=== PATIENT | female | born 1975 | race Caucasian/White ===

== ENCOUNTER 2021-03-07 11:52 | Emergency (ER) | payer MEDICAID, SELFPAY ==
[2021-03-07] VITALS (16 sets, daily range): BP systolic 109–128; BP diastolic 72–84; PULSE 68–86; RESP 16; TEMP 36.6; O2SAT 97–100
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
[2021-03-07 12:39] LABS: Abs Immature Grans 0.11 10^3/uL (0.0-0.06); Absolute Basophil Count 0.05 10^3/uL (0.0-0.2); Absolute Eosinophil Count 0.04 10^3/uL (0.0-0.7); Absolute Lymphocyte Count 1.66 10^3/uL (1.2-3.4); Absolute Monocyte Count 0.68 10^3/uL (0.1-0.8); Absolute Neutrophil Count 15.35 10^3/uL (1.2-6.7); Basophils % 0.3; Eosinophils % 0.2; HCT 45.6 % (36.0-46.0); HGB 15.2 g/dL (11.2-15.7); Immature Grans % 0.6; Lymphocytes % 9.3; MCHC 33.3 % (32.0-36.0); MPV 9.9 fL (8.0-11.0); Monocytes % 3.8; Neutrophils % 85.8; Nucleated RBC 0 %; Platelet Count 348 10^3/uL (130-400); RBC 5.24 10^6/uL (3.93-5.22); RDW 12.5 % (11.7-14.6); RDW-SD 39.7 fL; WBC 17.89 10^3/uL (4.4-10.8)
[2021-03-07 12:52] LABS: ALT 29 U/L (14-59); AST 36 U/L (15-37); Albumin 4.3 g/dL (3.4-5.0); Alkaline Phosphatase 67 U/L (46-116); Anion Gap 8.8 mmol/L (3-11); BUN 16 mg/dL (7-18); Bilirubin, Total 0.5 mg/dL (0.2-1.0); CO2 26.2 mmol/L (21.0-32.0); CREATININE 0.9 mg/dL (0.55-1.02); Calcium 9.8 mg/dL (8.5-10.1); Chloride 105 mmol/L (98-107); Glucose 104 mg/dL (74-106); Lipase 110 U/L (73-393); Potassium 4.1 mmol/L (3.5-5.1); Sodium 140 mmol/L (136-145); Total Protein 7.5 g/dL (6.4-8.2)
--- NOTE | 2021-03-07 12:52 | NUR.NOTE ---
a FAST exam was done by ER MD on arrivalNursing Note:
[2021-03-07] MEDS: ACETAMINOPHEN 1,000 MG/100 ML BTL 400 MG IVPB (13:22)
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
[2021-03-07] MEDS: Normal Saline 500 ML IV (15:00)
[2021-03-07] MEDS: Normal Saline 1,000 ML 150 ML IV (15:01)
--- NOTE | 2021-03-07 15:48 | NUR.NOTE ---
pt anticipates transfer to [facility] via ambulance . her family is aware Nursing Note:
[2021-03-07 16:02] LABS: Bilirubin Negative (Negative); Blood Negative (Negative); Clarity Sl Cloudy (Clear); Glucose Negative (Negative); Ketones 40 mg/dL (Negative); Leukocyte Esterase Negative (Negative); Nitrite Negative (Negative); Specific Gravity >= 1.030 (1.005-1.025); Urobilinogen 0.2 EU/dL (Up TO 0.2)
[2021-03-07 16:20] LABS: Bacteria Many HPF (Negative); C & S Indicated? No/Sq. Contamination; Casts 20-50 Hyaline LPF (Negative); Crystals Negative HPF (Negative); Epithelial Cells Many HPF (Negative); Mucus Negative (Negative); RBC 0-2 HPF (0-2); WBC >50 HPF (0-5)
--- NOTE | 2021-03-07 19:17 | NUR.NOTE ---
Nursing Note: Received call requesting ct reading in regards to patient received by [facility] printed and faxed CT readings to Emergency dept fax number .
== END 2021-03-07 16:09 | disposition short-term general hospital (02) ==
PROVIDERS: Emergency Provider Student in an Organized Health Care Education/Training Program; PCP Family Medicine
DX: S22.088A Other fracture of T11-T12 vertebra, initial encounter for closed fracture (principal); M25.531 Pain in right wrist; M79.641 Pain in right hand; V19.9XXA Pedal cyclist (driver) (passenger) injured in unspecified traffic accident, initial encounter; M54.89 Other dorsalgia
CPT/HCPCS: 36415; 71250; 80053; 81025; 83690; 96361; 96374; 99285; 70450; 72125; 72128; 72131; 73110; 73130; 74176; 81003; 81015; 85025; J0131

== ENCOUNTER 2021-04-29 02:26 | Outpatient (CLI) | payer MEDICAID, SELFPAY ==
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
--- NOTE | 2021-04-29 21:01 | DI.VRAD_ITS ---
PROCEDURE INFORMATION: Exam: MR Right Upper Extremity Joint Without Contrast; Wrist Exam date and time: 04/29/2021 8:55 AM Age: 46 years old Clinical indication: Other: Pain TECHNIQUE: Imaging protocol: MR of the Right upper extremity without contrast. Exam focused on the wrist. COMPARISON: CR XR WRIST RT COMPLETE 03/07/2021 1:13 PM FINDINGS: Bones and cartilage: There are multiple foci of erosive and cystic changes of the carpal bones involving the capitate, lunate, scaphoid and hamate bones (series 6001, image 8 -9). This is suspicious for an inflammatory arthropathy. There is an intraosseous cyst in the ulnar styloid process. Joint spaces: No joint effusion. Scapholunate ligament: There is nonvisualization of the dorsal band of the scapholunate ligament suspicious for a tear. Lunotriquetral ligament: Unremarkable. No tear. Triangular fibrocartilage complex: There is thinning of the central triangular fibrocartilage which may be degenerative in nature. No evidence for a tear. Flexor compartment tendons: Unremarkable. No tear. Extensor compartment tendons: Unremarkable. No tear. No tenosynovitis. Muscles: Unremarkable. No acute abnormality. Soft tissues: Unremarkable. Other findings: Carpal tunnel: No mass. The median nerve is unremarkable. IMPRESSION: 1. Nonvisualization of the dorsal band of the scapholunate ligament, suspicious for a tear. 2. Thinning of the central triangular fibrocartilage which may be degenerative in nature. No evidence for a tear. 3. Multiple foci of erosive and cystic changes of multiple carpal bones, suspicious for an inflammatory arthropathy. 4. No evidence for fracture. Dictated and Authenticated by: Gabriel Poole MD. Ordering:PETAR DUNCAN MD
== END 2021-04-29 02:46 ==
PROVIDERS: PCP Family Medicine; Visit Provider Physician Assistant
DX: M25.531 Pain in right wrist (principal); S63.8X1A Sprain of other part of right wrist and hand, initial encounter; M85.641 Other cyst of bone, right hand
CPT/HCPCS: 73221